=== PATIENT | male | born 1930 | race Caucasian/White ===

== ENCOUNTER 2017-05-16 13:49 | Emergency (ER) | payer MEDICARE, OTHER ==
[~2017-05-16] VITALS: Ht 188 cm; Wt 102.7 kg
[~2017-05-16 13:49] MED LIST: ACTOS 15MG TAB15 MG PO; ACTOS30 MG PO; AMARYL 2MG T2 MG/TAB PO; ASPI325T6 PO; CEPHALEXIN250 M1 PO; CIPRO 500MG TA500 MG PO; CRESTOR; CRESTOR5 MG PO; FERROUS SU325 MG/TAB PO; FERROUS SULFAT160 M1 PO; FLOMAX 0.40.4 MG/CAP PO; FLOMAX0.4 MG PO; GLUCOPHAGE; GLUCOPHAGE500 MG/TAB PO; GLYBURIDE MICRON3 MG PO; IRON325 M1 PO; LEVEMIR FLEX100 U/ML SQ; LISINOPRIL; MULTIPLE VITAMI1 CAP PO; MYRBETR50MG PO; NORCO 325 MG-101 TAB PO; OMNICEF 300MG300 MG PO; PRILOSEC; PRILOSEC10 MG PO; REMERON 15M15 MG/TA1 PO; SENOKOT S 50 MG1 TAB PO; ULTRAM 50MG TAB50 MG PO; ZESTRIL 5MG5 MG PO; ZOFRAN ODT4 MG PO
[2017-05-16 13:52] VITALS: TEMP 98.8
[2017-05-16 18:10] VITALS: BP 132/71; PULSE 69
== END 2017-05-16 18:15 | disposition home or self-care (01) ==
LOC: COL.ER 13:49
DX: T18.128A Food in esophagus causing other injury, initial encounter (principal); E11.9 Type 2 diabetes mellitus without complications; E78.5 Hyperlipidemia, unspecified; I10 Essential (primary) hypertension; K21.9 Gastro-esophageal reflux disease without esophagitis; N40.0 Benign prostatic hyperplasia without lower urinary tract symptoms; Z79.4 Long term (current) use of insulin; Z87.19 Personal history of other diseases of the digestive system; Z98.890 Other specified postprocedural states
CPT/HCPCS: C1769; J2704

== ENCOUNTER 2017-06-10 08:46 | Inpatient (IN) | payer MEDICARE, OTHER ==
[~2017-06-10] VITALS: Ht 188 cm; Wt 107.5 kg
[~2017-06-10 08:46] MED LIST changes: -FERROUS SULFAT160 M1 PO; +IRON 27 MG PO
[2017-06-10 09:39] LABS: BASO % 0.2 % (0.0-2.0); GRAN # 12.1 (1.4-6.5); GRAN % 80.3 % (42.2-75.2); LYMPH # 1.7 (1.2-3.4); MEAN CELL VOLUME 101 fl (80.0-100.0); MEAN CORPUSCULAR HGB CONC 34 g/dl (33.0-37.0); MEAN PLATELET VOLUME 10.5 fl (7.4-10.4); MONO # 1.1 (0.1-0.6); MONO % 7.5 % (1.7-9.3); PLATELET COUNT 197 K/mm3 (130-400); RED BLOOD COUNT 3.24 M/mm3 (4.20-5.60)
[2017-06-10 09:42] LABS: ALBUMIN 4.2 gm/dL (3.5-5.0); BILIRUBIN,TOTAL 1.5 mg/dL (0.0-1.0); CALCIUM 9.2 mg/dL (8.4-10.2); CREATININE, serum 1.27 mg/dL (0.66-1.25); TOTAL PROTEIN 7.5 gm/dL (6.4-8.2)
[2017-06-10 09:43] LABS: HEMATOCRIT 32.6 % (42.0-52.0); MEAN CORPUSCULAR HEMOGLOBIN 34 pg (27.0-31.0)
[2017-06-10 09:54] LABS: TROPONIN-I 0.021 ng/mL (0.000-0.034)
[2017-06-10 09:56] LABS: INR 1.2 (0.8-3.0); PROTHROMBIN TIME 13.9 SECONDS (9.7-12.8)
[2017-06-10 11:27] LABS: COLLECTION METHOD CLEAN CATCH
[2017-06-10 11:38] LABS: MUCOUS Present /lpf; PH 5 (5-8); SQUAMOUS EPITHELIAL 0-2 /hpf; URINE APPEARANCE Cloudy; URINE BACTERIA Many /hpf; URINE BILIRUBIN Negative (NEGATIVE); URINE BLOOD 2+ (NEGATIVE); URINE COLOR Amber; URINE GLUCOSE Negative (NEGATIVE); URINE KETONE Trace (NEGATIVE); URINE LEUKOCYTE ESTERASE 2+ (NEGATIVE); URINE PROTEIN(semi-quant) 2+ (NEGATIVE); URINE UROBILINOGEN Negative (NEGATIVE)
[2017-06-10 11:39] LABS: URINE WBC >50 /hpf
[2017-06-10 15:18] VITALS: BP 129/54; PULSE 84; TEMP 98.1
[2017-06-10] MEDS ORDERED: TRESIBA FL100 UNIT/1 SQ (15:22)
[2017-06-10] MEDS ORDERED: NORCO 325 MG-51 TAB PO (15:23)
[2017-06-10] MEDS ORDERED: NATURE'S BLEND500 M1 PO (15:24)
[2017-06-10] MEDS ORDERED: PROBIOTIC ACID1 EAC3 PO (15:25)
[2017-06-10] MEDS ORDERED: NOVOLOG FLEX100 U/ML SQ (15:28)
[2017-06-10 16:06] VITALS: BP 113/52; PULSE 75; TEMP 98.7
[2017-06-10 20:03] VITALS: BP 118/49; PULSE 76; TEMP 98.9
[2017-06-11 03:49] VITALS: BP 100/52; PULSE 71; TEMP 98.7
[2017-06-11 08:07] VITALS: BP 104/50; PULSE 67; TEMP 97.6
[2017-06-11 09:28] LABS: BASO % 0.2 % (0.0-2.0); EOS % 0.2 % (0-4.0); GRAN # 6.3 (1.4-6.5); GRAN % 73.5 % (42.2-75.2); LYMPH # 1.5 (1.2-3.4); MEAN CELL VOLUME 102 fl (80.0-100.0); MEAN CORPUSCULAR HGB CONC 34 g/dl (33.0-37.0); MEAN PLATELET VOLUME 10.8 fl (7.4-10.4); MONO # 0.6 (0.1-0.6); MONO % 7.4 % (1.7-9.3); PLATELET COUNT 141 K/mm3 (130-400); RED BLOOD COUNT 2.59 M/mm3 (4.20-5.60); WHITE BLOOD COUNT 8.5 K/mm3 (4.8-10.8)
[2017-06-11 09:30] LABS: CALCIUM 8.2 mg/dL (8.4-10.2); CREATININE, serum 1.04 mg/dL (0.66-1.25); MAGNESIUM 1.7 mg/dL (1.6-2.3); POTASSIUM 3.7 mmol/L (3.4-5.0)
[2017-06-11 09:42] LABS: TROPONIN-I 0.029 ng/mL (0.000-0.034)
[2017-06-11 09:48] LABS: HEMATOCRIT 26.3 % (42.0-52.0); HEMOGLOBIN 8.8 g/dl (13.5-18.0); MEAN CORPUSCULAR HEMOGLOBIN 34 pg (27.0-31.0)
[2017-06-11 13:19] VITALS: BP 119/49; PULSE 72; TEMP 98.5
[2017-06-11 15:48] VITALS: BP 121/50; PULSE 87; TEMP 98.1
[2017-06-11 15:53] LABS: HEMATOCRIT 33.2 % (42.0-52.0); HEMOGLOBIN 10.9 g/dl (13.5-18.0)
[2017-06-11 19:44] VITALS: BP 99/85; PULSE 83; TEMP 98.5
[2017-06-11 23:26] VITALS: BP 130/53; BP 155/92; PULSE 62; PULSE 81; TEMP 98.4
[2017-06-12] VITALS (10 sets, daily range): BP systolic 114–154; BP diastolic 47–119; PULSE 78–119; TEMP 97.5–99.3
[2017-06-12 06:20] LABS: BASO % 0.3 % (0.0-2.0); EOS % 0.1 % (0-4.0); GRAN % 69.5 % (42.2-75.2); LYMPH # 1.4 (1.2-3.4); LYMPH % 19.9 % (20.0-51.0); MEAN CELL VOLUME 101 fl (80.0-100.0); MEAN CORPUSCULAR HGB CONC 33 g/dl (33.0-37.0); MEAN PLATELET VOLUME 10.6 fl (7.4-10.4); MONO # 0.7 (0.1-0.6); MONO % 9.4 % (1.7-9.3); PLATELET COUNT 176 K/mm3 (130-400); WHITE BLOOD COUNT 7.2 K/mm3 (4.8-10.8)
[2017-06-12 06:25] LABS: HEMATOCRIT 28.3 % (42.0-52.0); HEMOGLOBIN 9.4 g/dl (13.5-18.0); MEAN CORPUSCULAR HEMOGLOBIN 34 pg (27.0-31.0)
[2017-06-12 06:41] LABS: CALCIUM 8.4 mg/dL (8.4-10.2); CREATININE, serum 0.92 mg/dL (0.66-1.25); MAGNESIUM 1.7 mg/dL (1.6-2.3); POTASSIUM 3.7 mmol/L (3.4-5.0)
[2017-06-12] MEDS ORDERED: CEFTIN 250250 MG/TAB PO (17:01)
[2017-06-12] MEDS ORDERED: NORCO 325 MG-51 TAB PO (17:02)
[2017-06-12] MEDS ORDERED: ULTRAM 50MG TAB50 MG PO (17:02)
[2017-06-13 03:41] VITALS: BP 136/59; PULSE 87; TEMP 97.9
[2017-06-13 07:03] LABS: MEAN CELL VOLUME 101 fl (80.0-100.0); MEAN CORPUSCULAR HGB CONC 34 g/dl (33.0-37.0); MEAN PLATELET VOLUME 10.8 fl (7.4-10.4); PLATELET COUNT 217 K/mm3 (130-400); RED BLOOD COUNT 2.66 M/mm3 (4.20-5.60); WHITE BLOOD COUNT 5.8 K/mm3 (4.8-10.8)
[2017-06-13 07:12] LABS: ADD PATHOLOGY DIFF REVIEW NO; HEMATOCRIT 26.9 % (42.0-52.0); HEMOGLOBIN 9.2 g/dl (13.5-18.0); MEAN CORPUSCULAR HEMOGLOBIN 35 pg (27.0-31.0)
[2017-06-13 07:16] LABS: CALCIUM 8.4 mg/dL (8.4-10.2); CREATININE, serum 0.88 mg/dL (0.66-1.25); MAGNESIUM 1.7 mg/dL (1.6-2.3); PHOSPHOROUS 2.7 mg/dL (2.5-4.5); POTASSIUM 3.9 mmol/L (3.4-5.0)
[2017-06-13 08:21] LABS: BAND 2 % (0-10); LYMPHOCYTE 20 % (20.0-51.0); METAMYELOCYTE 1 % (0-0); NEUTROPHILS 70 % (42.0-75.2); PLATELET ESTIMATE NORMAL (NORMAL); TOTAL CELLS COUNTED 100
[2017-06-13 08:23] LABS: ANISOCYTOSIS 1+
[2017-06-13 08:44] VITALS: BP 140/55; PULSE 87; TEMP 98.1
[2017-06-13 12:17] VITALS: BP 120/58; PULSE 72; TEMP 98.2
[2017-06-13 15:56] VITALS: BP 130/58; PULSE 83; TEMP 99
[2017-06-13 19:54] VITALS: BP 116/48; PULSE 86; TEMP 98.8
[2017-06-13 23:51] VITALS: BP 126/46; PULSE 69; TEMP 98.2
[2017-06-14 04:06] VITALS: BP 117/52; PULSE 66; TEMP 98.9
[2017-06-14 07:54] VITALS: BP 171/91; PULSE 81; TEMP 97.6
[2017-06-14 08:09] LABS: MEAN CELL VOLUME 100 fl (80.0-100.0); MEAN CORPUSCULAR HGB CONC 34 g/dl (33.0-37.0); MEAN PLATELET VOLUME 10.7 fl (7.4-10.4); PLATELET COUNT 263 K/mm3 (130-400); RED BLOOD COUNT 3.05 M/mm3 (4.20-5.60); WHITE BLOOD COUNT 4.4 K/mm3 (4.8-10.8)
[2017-06-14 08:10] LABS: ADD PATHOLOGY DIFF REVIEW NO; HEMATOCRIT 30.4 % (42.0-52.0); HEMOGLOBIN 10.3 g/dl (13.5-18.0); MEAN CORPUSCULAR HEMOGLOBIN 34 pg (27.0-31.0)
[2017-06-14 08:50] LABS: CALCIUM 8.9 mg/dL (8.4-10.2); CREATININE, serum 0.86 mg/dL (0.66-1.25); MAGNESIUM 1.7 mg/dL (1.6-2.3); PHOSPHOROUS 3.2 mg/dL (2.5-4.5); POTASSIUM 3.5 mmol/L (3.4-5.0)
[2017-06-14 10:03] LABS: BAND 5 % (0-10); EOSINOPHIL 2 % (0-4); LYMPHOCYTE 30 % (20.0-51.0); METAMYELOCYTE 2 % (0-0); NEUTROPHILS 56 % (42.0-75.2); PLATELET ESTIMATE NORMAL (NORMAL); POLYCHROMASIA 1+; TOTAL CELLS COUNTED 100
[2017-06-14] MEDS ORDERED: B-121000 MCG PO (10:15)
[2017-06-14] MEDS ORDERED: MIRALAX 255 GM255 GM PO (10:25)
[2017-06-14 11:35] VITALS: BP 126/103; PULSE 87; TEMP 97.1
[2017-06-14 11:58] VITALS: BP 126/103; PULSE 87; TEMP 97.1
[2017-06-14] MEDS ORDERED: NORCO 325 MG-51 TAB PO (12:11)
[2017-06-14] MEDS ORDERED: ULTRAM 50MG TAB50 MG PO (12:11)
== END 2017-06-14 13:12 | DRG 872 ==
LOC: COL.ER 08:46 → MEDICAL 12:08
PROVIDERS: Emergency Medicine; Internal Medicine; Nurse Practitioner Family; Physician Assistant
DX: A41.59 Other Gram-negative sepsis (principal); N39.0 Urinary tract infection, site not specified; E87.1 Hypo-osmolality and hyponatremia; N17.9 Acute kidney failure, unspecified; E87.2 Acidosis; B96.1 Klebsiella pneumoniae [K. pneumoniae] as the cause of diseases classified elsewhere; E11.9 Type 2 diabetes mellitus without complications; I10 Essential (primary) hypertension; R65.20 Severe sepsis without septic shock; Z79.4 Long term (current) use of insulin; D64.9 Anemia, unspecified; R26.81 Unsteadiness on feet
CPT/HCPCS: 99223-AI; 99231-AI; 99232-AI; 99239; J0696; J1335; J1644; J1815; J1940; J2185; J3420; J7030; J7050

== ENCOUNTER 2019-07-06 17:42 | Inpatient (IN) | payer MEDICARE, OTHER ==
[~2019-07-06] VITALS: Ht 185.4 cm; Wt 106.8 kg
[~2019-07-06 17:42] MED LIST changes: +B-121000 MCG PO; +CEFTIN 250250 MG/TAB PO; +MIRALAX 255 GM255 GM PO; +NATURE'S BLEND500 M1 PO; +NORCO 325 MG-51 TAB PO; +NOVOLOG FLEX100 U/ML SQ; +PROBIOTIC ACID1 EAC3 PO; +TRESIBA FL100 UNIT/1 SQ
[2019-07-06 18:32] LABS: HEMOGLOBIN 10.5 g/dl (13.5-18.0); MEAN CELL VOLUME 100 fl (80.0-100.0); MEAN CORPUSCULAR HEMOGLOBIN 34 pg (27.0-31.0); MEAN CORPUSCULAR HGB CONC 34 g/dl (33.0-37.0); MEAN PLATELET VOLUME 11.4 fl (7.4-10.4); PLATELET COUNT 210 K/mm3 (130-400); RED BLOOD COUNT 3.11 M/mm3 (4.20-5.60); REDCELL DISTRIBUTION WIDTH-CV 15.6 % (11.5-14.5)
[2019-07-06 18:36] LABS: ALBUMIN 3.7 gm/dL (3.5-5.0); BILIRUBIN,TOTAL 4.9 mg/dL (0.0-1.0); CALCIUM 9.1 mg/dL (8.4-10.2); CREATININE, serum 1.42 (0.66-1.25); POTASSIUM 3.9 mmol/L (3.4-5.0); TOTAL PROTEIN 7.6 gm/dL (6.4-8.2)
[2019-07-06 18:39] LABS: HEMATOCRIT 31.1 % (42.0-52.0)
[2019-07-06 18:43] LABS: INR 1.3 (0.8-3.0); PROTHROMBIN TIME 14.9 SECONDS (9.7-12.8)
[2019-07-06 18:47] LABS: C-REACTIVE PROTEIN 25.4 mg/dL (0.0-0.9); TROPONIN-I 0.038 ng/mL (0.000-0.035)
[2019-07-06 19:16] LABS: BAND 6 % (0-10); LYMPHOCYTE 3 % (20.0-51.0); NEUTROPHILS 91 % (42.0-75.2); PLATELET ESTIMATE NORMAL (NORMAL)
[2019-07-06] MEDS ORDERED: PROSCAR 5MG5 MG PO (20:09)
[2019-07-06] MEDS ORDERED: SENNA-LAX8.6 MG PO (20:11)
[2019-07-06 20:45] LABS: COLLECTION METHOD CLEAN CATCH
[2019-07-06 20:51] LABS: MUCOUS Present /lpf; PH 5 (5-8); SQUAMOUS EPITHELIAL 0-2 /hpf; URINE APPEARANCE Clear; URINE BACTERIA None Seen /hpf; URINE BILIRUBIN Positive (NEGATIVE); URINE BLOOD 2+ (NEGATIVE); URINE COLOR Amber; URINE GLUCOSE 1+ (NEGATIVE); URINE KETONE Negative (NEGATIVE); URINE LEUKOCYTE ESTERASE Negative (NEGATIVE); URINE NITRATE Negative (NEGATIVE); URINE PROTEIN(semi-quant) 1+ (NEGATIVE); URINE RBC 0-2 /hpf
[2019-07-06 20:55] VITALS: BP 124/60; PULSE 90; TEMP 98.5
[2019-07-06] MEDS ORDERED: FERROUS GL325 MG/TAB PO (21:44)
--- NOTE | 2019-07-06 22:00 | NUR ---
Admitted to medical floor from ER with increased troponin, cholycystitis, jaundice- alert, oriented-VSS, very pleasant- did fall at home due to weakness- will be on fall protocol- states understanding,bed alarm on- assisted with urinal- voided 200cc dark arnoldo/orange urine, denies pain, Tele on,
[2019-07-06 23:33] VITALS: BP 109/57; PULSE 79; TEMP 98.2
--- NOTE | 2019-07-07 02:38 | NUR ---
Bhakta by Tele- pt had 16 beat run afib-rvr, back in NSR, pt resting, no complaints-Did inform Concepción TORRES sandstone splitter tonight
[2019-07-07 03:19] VITALS: BP 117/70; PULSE 76; TEMP 98.6
--- NOTE | 2019-07-07 05:35 | NUR ---
Quiet night-- did sleep fair all night ,,VSS,Voiding dk urine per urinal-- pt is NPO,IV fluids of NS at 150cc/hr,VSS. Pt denies pain/nausea.
[2019-07-07 06:42] LABS: MEAN CELL VOLUME 102 fl (80.0-100.0); MEAN CORPUSCULAR HGB CONC 33 g/dl (33.0-37.0); MEAN PLATELET VOLUME 11.2 fl (7.4-10.4); PLATELET COUNT 174 K/mm3 (130-400); RED BLOOD COUNT 2.73 M/mm3 (4.20-5.60); REDCELL DISTRIBUTION WIDTH-CV 15.7 % (11.5-14.5)
[2019-07-07 06:50] LABS: HEMATOCRIT 27.7 % (42.0-52.0); HEMOGLOBIN 9.1 g/dl (13.5-18.0); MEAN CORPUSCULAR HEMOGLOBIN 33 pg (27.0-31.0)
--- NOTE | 2019-07-07 07:00 | NUR ---
Bedside shift report received from AMANUEL Astudillo. Pt in bed resting, cherise muñoz, will continue to monitor.
[2019-07-07 07:01] LABS: INR 1.2 (0.8-3.0)
[2019-07-07 07:05] LABS: BILIRUBIN,TOTAL 4.3 mg/dL (0.0-1.0); CALCIUM 8.2 mg/dL (8.4-10.2); CREATININE, serum 1.12 (0.66-1.25); POTASSIUM 3.8 mmol/L (3.4-5.0); TOTAL PROTEIN 6.5 gm/dL (6.4-8.2)
[2019-07-07 07:38] LABS: BAND 12 % (0-10); LYMPHOCYTE 9 % (20.0-51.0); METAMYELOCYTE 2 % (0-0); MYELOCYTE 2 % (0-0); NEUTROPHILS 74 % (42.0-75.2); PLATELET ESTIMATE NORMAL (NORMAL)
--- NOTE | 2019-07-07 08:34 | NUR ---
Pt sylvie, consent signed for ERCP today. [facility] Pt is NPO. Pain is 2/10 to RUQ requestingPRN pain medication, provided. Pt has yellow sclera to eyes, pallor to skin. IVF to RA/C. SCDs in place. Denies other needs, will continue to monitor.
[2019-07-07 08:42] VITALS: BP 128/58; PULSE 76; TEMP 98.9
[2019-07-07 12:32] VITALS: BP 122/52; PULSE 81; TEMP 98.9
--- NOTE | 2019-07-07 14:36 | NUR ---
Communication Instructor met with patient and patient's
--- NOTE | 2019-07-07 14:38 | NUR ---
Ingot Supervisor met with the patient, patient's daughter Ofelia (ph#[phone]) and granddaughter Karely to discuss discharge planning. Patient states he lives at [facility] and has been there for about [address] Holloway for primary care. Patient has two different walkers and a cane. Patient has Advance Directives located in the EMR. Patient plans to return to [facility] upon discharge. SW presented Patient Choice form and patient selected [facility]. Patient provided signature and SW placed form in chart. Patient states his son, Marty (ph#[phone]) can provide transportation upon discharge. SW contacted Nicol at [facility] who advised patient lives in Independent Living. SW faxed referral in case skilled stay is recommended. SW to continue to follow.
--- NOTE | 2019-07-07 16:07 | NUR ---
Pt down in Endoscopy for ERCP at this time. Pt did well today, PRN pain meds provided as needed. Report given to AMANUEL Lucero who will resume care.
--- NOTE | 2019-07-07 20:15 | NUR ---
Shift assessment complete. Pt resting in bed, awake, a&o, cooperative c cares. Pt denies pain or other c/o at this time. INT patent. Tele in place. Pt denies further needs. Call light in reach, bed alarm on. Will continue to monitor.
[2019-07-07 20:21] VITALS: BP 136/62; PULSE 88; TEMP 99.1
[2019-07-08] VITALS (7 sets, daily range): BP systolic 117–138; BP diastolic 41–69; PULSE 70–88; TEMP 98.3–99.4
[2019-07-08 06:53] LABS: MEAN CELL VOLUME 102 fl (80.0-100.0); MEAN CORPUSCULAR HGB CONC 33 g/dl (33.0-37.0); MEAN PLATELET VOLUME 11.8 fl (7.4-10.4); PLATELET COUNT 168 K/mm3 (130-400); RED BLOOD COUNT 2.61 M/mm3 (4.20-5.60); REDCELL DISTRIBUTION WIDTH-CV 15.6 % (11.5-14.5)
[2019-07-08 06:56] LABS: HEMATOCRIT 26.5 % (42.0-52.0); HEMOGLOBIN 8.8 g/dl (13.5-18.0); MEAN CORPUSCULAR HEMOGLOBIN 34 pg (27.0-31.0)
[2019-07-08 06:57] LABS: INR 1.2 (0.8-3.0); PROTHROMBIN TIME 13.7 SECONDS (9.7-12.8)
[2019-07-08 07:05] LABS: ALBUMIN 2.7 gm/dL (3.5-5.0); BILIRUBIN,TOTAL 5.1 mg/dL (0.0-1.0); CALCIUM 7.8 mg/dL (8.4-10.2); CREATININE, serum 0.96 (0.66-1.25); POTASSIUM 3.6 mmol/L (3.4-5.0); TOTAL PROTEIN 6.2 gm/dL (6.4-8.2)
[2019-07-08 07:33] LABS: BAND 14 % (0-10); LYMPHOCYTE 11 % (20.0-51.0); NEUTROPHILS 67 % (42.0-75.2); PLATELET ESTIMATE NORMAL (NORMAL)
--- NOTE | 2019-07-08 08:04 | NUR ---
Patient resting in bed. He report hunger this am, we reivewed importance of clear liquids only today. Denies nausea. Hyperactive bowels. He denies the need for pain medication, reports pain only with movement at a 3/10. Scds ble. Ivf & antibioitic to RAC. Will monitor closely.
--- NOTE | 2019-07-08 09:39 | NUR ---
Patient sitting up in chair. He tolerated clear liquid tray, no nausea. Up and ambulated halls with therapy & did well. Dyspnea with exertion. We reviewed safety & not getting up unless he has assistance.
--- NOTE | 2019-07-08 17:27 | NUR ---
Patient provided with incontinence care as needed today. One assist with walker & gaitbelt. He is tolerating fulls. He has denies nausea & pain today. Ivf
--- NOTE | 2019-07-08 20:40 | NUR ---
Shift assessment complete. Pt resting in bed, awake, a&o c occasional forgetfull statements, cooperative c cares. Pt denies pain or any other c/o. IV patent. Tele in place. Pt denies further needs. Call light in reach, bed alarm on. Will continue to monitor.
[2019-07-09 03:21] VITALS: BP 153/72; PULSE 86; TEMP 98.4
[2019-07-09 06:02] LABS: MEAN CELL VOLUME 100 fl (80.0-100.0); MEAN CORPUSCULAR HGB CONC 34 g/dl (33.0-37.0); MEAN PLATELET VOLUME 11.6 fl (7.4-10.4); PLATELET COUNT 184 K/mm3 (130-400); RED BLOOD COUNT 2.74 M/mm3 (4.20-5.60); REDCELL DISTRIBUTION WIDTH-CV 15.4 % (11.5-14.5)
[2019-07-09 06:03] LABS: HEMATOCRIT 27.3 % (42.0-52.0); HEMOGLOBIN 9.2 g/dl (13.5-18.0); MEAN CORPUSCULAR HEMOGLOBIN 34 pg (27.0-31.0)
[2019-07-09 06:08] LABS: ALBUMIN 2.7 gm/dL (3.5-5.0); BILIRUBIN,TOTAL 5.7 mg/dL (0.0-1.0); CALCIUM 8.1 mg/dL (8.4-10.2); CREATININE, serum 0.88 (0.66-1.25); POTASSIUM 3.4 mmol/L (3.4-5.0); TOTAL PROTEIN 6.2 gm/dL (6.4-8.2)
[2019-07-09 06:12] LABS: INR 1.2 (0.8-3.0); PROTHROMBIN TIME 14.1 SECONDS (9.7-12.8)
[2019-07-09 07:14] VITALS: BP 141/61; PULSE 82; TEMP 98
--- NOTE | 2019-07-09 09:00 | NUR ---
Patient sitting up in bed, son at the bedside. A&O, denies pain and discomfort. VSS. IV CDI, fluids. Patient on full liquid diet, did not like anything on his tray for breakfast. Jello provided when requested. No further needs expressed from patient. Call light within reach
[2019-07-09 10:11] LABS: LYMPHOCYTE 10 % (20.0-51.0); NEUTROPHILS 84 % (42.0-75.2); PLATELET ESTIMATE NORMAL (NORMAL)
[2019-07-09 10:48] LABS: C-REACTIVE PROTEIN 19.6 mg/dL (0.0-0.9)
[2019-07-09 11:36] VITALS: BP 148/63; PULSE 85; TEMP 99.1
[2019-07-09 16:28] VITALS: BP 128/60; PULSE 91; TEMP 99.2
--- NOTE | 2019-07-09 17:33 | NUR ---
Patient had been incontinent of urine several times throughout the shift and has called to use the urinal. Patient also has had a decreased appetite and nursing staff encouraging PO intake. Patient has been repositioned PRN distribute weight. Denies pain and discomfort. VSS. IV CDI, fluids infusing. No further needs expressed from patient. Call light within reach. Bed alarm on
[2019-07-09 19:54] VITALS: BP 114/55; PULSE 94; TEMP 98.1
--- NOTE | 2019-07-09 20:40 | NUR ---
Shift assessment complete. Pt resting in bed, awake, a&o, cooperative c cares. Pt denies pain or any other c/o. IV patent. Tele in place. Pt denies needs at this time. Call light in reach, bed alarm on. Will continue to monitor.
[2019-07-09 23:51] VITALS: BP 129/62; PULSE 90; TEMP 98.9
[2019-07-10] VITALS (11 sets, daily range): BP systolic 133–158; BP diastolic 60–85; PULSE 80–88; TEMP 98.3–99
[2019-07-10 06:05] LABS: MEAN CELL VOLUME 98 fl (80.0-100.0); MEAN CORPUSCULAR HGB CONC 35 g/dl (33.0-37.0); MEAN PLATELET VOLUME 11.2 fl (7.4-10.4); PLATELET COUNT 191 K/mm3 (130-400); REDCELL DISTRIBUTION WIDTH-CV 15.3 % (11.5-14.5)
[2019-07-10 06:09] LABS: HEMATOCRIT 27.5 % (42.0-52.0); HEMOGLOBIN 9.5 g/dl (13.5-18.0); MEAN CORPUSCULAR HEMOGLOBIN 34 pg (27.0-31.0)
[2019-07-10 06:13] LABS: ALBUMIN 2.8 gm/dL (3.5-5.0); BILIRUBIN,TOTAL 4.6 mg/dL (0.0-1.0); CALCIUM 8.2 mg/dL (8.4-10.2); CREATININE, serum 0.9 (0.66-1.25); MAGNESIUM 1.5 mg/dL (1.6-2.3); POTASSIUM 3.3 mmol/L (3.4-5.0); TOTAL PROTEIN 6.4 gm/dL (6.4-8.2)
--- NOTE | 2019-07-10 08:00 | NUR ---
Assessment complete. Pt sitting up in bed, A&O x 3. Physical assessment unremarkable. IVF's infusing per orders through right AC site without s/s of complications. Pt denies pain at this time. POC reviewed with pt and pt's son. Pt reports having trouble with the urinal and needing urinate frequently, requesting an external catheter. This nurse will look into the options. Call light in reach. Bed alarm on.
[2019-07-10 08:24] LABS: BAND 7 % (0-10); LYMPHOCYTE 16 % (20.0-51.0); METAMYELOCYTE 2 % (0-0); MYELOCYTE 1 % (0-0); NEUTROPHILS 73 % (42.0-75.2); PLATELET ESTIMATE NORMAL (NORMAL)
--- NOTE | 2019-07-10 11:00 | NUR ---
No external catheters currently available. Pt requesting indwelling catheter. Provider notified, order received.
--- NOTE | 2019-07-10 12:30 | NUR ---
Inserted indwelling ram catheter to patient using G16. Urine draining well, clear and arnoldo color. Patient tolerated the procedure.
--- NOTE | 2019-07-10 15:30 | NUR ---
Pt to OR via bed at this time. IV NS to gravity per pre-op orders.
--- NOTE | 2019-07-10 18:57 | NUR ---
Pt back to room from PACU via bed, drowsy, alert to stimuli then back to sleep quickly. VSS. O2 remains at 4 L/min via NC. Bandaids x 4 to abd CDI. Pt's son at bedside. Call light in reach.
--- NOTE | 2019-07-10 19:45 | NUR ---
Shift assessment complete. Pt resting in bed, sleepy but easy to wake, alert, oriented but c frequent confused statements p procedure, cooperative c cares. Pt c/o abd pain, unable to describe or rate; PRN pain medical staff assistant per pt req. Pt denies any other c/o. ABD lap sites x4 from lap allison, all sites s complication et bandaids C/D/I. Tele in place. O2 per NC. Post-op VSS. Cunningham to DD s complication. Pt s further needs. Call light in reach, bed alarm on. Will continue to monitor.
[2019-07-11] VITALS: BP 134/70; PULSE 86; TEMP 98.8
[2019-07-11 04:08] VITALS: BP 128/46; PULSE 76; TEMP 98
[2019-07-11 06:44] LABS: ALBUMIN 2.7 gm/dL (3.5-5.0); CALCIUM 7.8 mg/dL (8.4-10.2); CREATININE, serum 0.89 (0.66-1.25); MAGNESIUM 1.9 mg/dL (1.6-2.3); POTASSIUM 3.7 mmol/L (3.4-5.0); TOTAL PROTEIN 6.1 gm/dL (6.4-8.2)
[2019-07-11 06:56] LABS: MEAN CELL VOLUME 101 fl (80.0-100.0); MEAN CORPUSCULAR HGB CONC 34 g/dl (33.0-37.0); MEAN PLATELET VOLUME 11.4 fl (7.4-10.4); PLATELET COUNT 206 K/mm3 (130-400); RED BLOOD COUNT 2.65 M/mm3 (4.20-5.60); REDCELL DISTRIBUTION WIDTH-CV 16.1 % (11.5-14.5)
[2019-07-11 06:59] LABS: HEMATOCRIT 26.8 % (42.0-52.0); HEMOGLOBIN 9.1 g/dl (13.5-18.0); MEAN CORPUSCULAR HEMOGLOBIN 34 pg (27.0-31.0)
[2019-07-11 07:29] VITALS: BP 128/62; PULSE 74; TEMP 98.2
--- NOTE | 2019-07-11 09:00 | NUR ---
Patient sitting up in bed. A&Ox4, reporting pain in abdomen, pain medication given prior. VSS. IV CDI. 4xlap sites, CDI bandaid covering. Cunningham to dependent drainage, clear dark yellow. No further needs expressed from patient. Call light within reach. Bed alarm on
[2019-07-11 09:07] LABS: BAND 6 % (0-10); LYMPHOCYTE 15 % (20.0-51.0); METAMYELOCYTE 2 % (0-0); MYELOCYTE 2 % (0-0); NEUTROPHILS 75 % (42.0-75.2)
[2019-07-11 09:08] LABS: PLATELET ESTIMATE NORMAL (NORMAL); SCHISTOCYTES 1+
[2019-07-11 11:45] VITALS: BP 114/48; PULSE 77; TEMP 97.8
--- NOTE | 2019-07-11 13:18 | NUR ---
SW presented the IM form to the patient. The patient understood and signed the form. A copy was provided to the patient and original was placed in the chart. Social service will continue to follow.
[2019-07-11] MEDS ORDERED: TYLENOL 325MG325 MG PO (13:23)
[2019-07-11] MEDS ORDERED: NORCO 325 MG-51 TAB PO (13:24)
[2019-07-11 14:17] VITALS: BP 126/56; PULSE 89
[2019-07-11] MEDS ORDERED: FLAGYL500 MG PO (14:25)
[2019-07-11] MEDS ORDERED: OMNICEF 300MG300 MG PO (14:25)
[2019-07-11] MEDS ORDERED: NOVOLOG FLEX100 U/ML SQ (14:26)
--- NOTE | 2019-07-11 14:56 | NUR ---
The patient is to discharge today, 07/11 to [facility] for a nursing home stay. The patient will be transported at 1530. SW will fax discharge orders. There are no additional needs at this time.
[2019-07-11] MEDS ORDERED: LOPRESSOR 225 MG/TAB PO (14:57)
--- NOTE | 2019-07-11 15:23 | NUR ---
IV removed, tip intact, gauze and coban applied. Patient tolerated well. Cunningham removed, 12 ml water removed from balloon. Pericare provided before and after removal. Patient tolerated well. Patient assisted into clothes, waiting on [facility] transporter. No further needs expressed from patient. Call light within reach. Will continue to monitor
== END 2019-07-11 15:50 | DRG 853 ==
LOC: COL.ER 17:42 → MEDICAL 20:03
PROVIDERS: Emergency Medicine; Internal Medicine; Internal Medicine Interventional Cardiology; Nurse Practitioner Family; Surgery; ADMIT Hospitalist
PROC: 8E0W4CZ Robotic Assisted Procedure of Trunk Region, Percutaneous Endoscopic Approach (ICD-10-PCS; 2019-07-10)
PROC: 0FC98ZZ Extirpation of Matter from Common Bile Duct, Via Natural or Artificial Opening Endoscopic (ICD-10-PCS; 2019-07-10)
PROC: 0FT44ZZ Resection of Gallbladder, Percutaneous Endoscopic Approach (ICD-10-PCS; principal; 2019-07-10 15:45)
DX: A41.9 Sepsis, unspecified organism (principal); I21.A1 Myocardial infarction type 2; N17.9 Acute kidney failure, unspecified; K80.42 Calculus of bile duct with acute cholecystitis without obstruction; N13.8 Other obstructive and reflux uropathy; E78.5 Hyperlipidemia, unspecified; K21.9 Gastro-esophageal reflux disease without esophagitis; F32.9 Major depressive disorder, single episode, unspecified; J45.909 Unspecified asthma, uncomplicated; G43.909 Migraine, unspecified, not intractable, without status migrainosus; J44.9 Chronic obstructive pulmonary disease, unspecified; E11.40 Type 2 diabetes mellitus with diabetic neuropathy, unspecified; M19.90 Unspecified osteoarthritis, unspecified site; N40.1 Benign prostatic hyperplasia with lower urinary tract symptoms; T50.2X5A Adverse effect of carbonic-anhydrase inhibitors, benzothiadiazides and other diuretics, initial encounter; E11.39 Type 2 diabetes mellitus with other diabetic ophthalmic complication; I10 Essential (primary) hypertension; E80.6 Other disorders of bilirubin metabolism; E87.6 Hypokalemia; E83.42 Hypomagnesemia; Z96.612 Presence of left artificial shoulder joint; Z96.611 Presence of right artificial shoulder joint; Z79.4 Long term (current) use of insulin; Z93.0 Tracheostomy status
CPT/HCPCS: 99222-AI; 99232-AI; A4216; C1769; C9113; J0696; J1815; J1940; J1956; J2270; J2405; J2543; J2704; J3010; J3475; J3480; J7030; Q9967

== ENCOUNTER 2019-10-01 14:30 | Emergency (ER) | payer MEDICARE, OTHER ==
[~2019-10-01] VITALS: Ht 185.4 cm; Wt 100.5 kg
[~2019-10-01 14:30] MED LIST changes: +FERROUS GL325 MG/TAB PO; +FLAGYL500 MG PO; +LOPRESSOR 225 MG/TAB PO; +PROSCAR 5MG5 MG PO; +SENNA-LAX8.6 MG PO; +TYLENOL 325MG325 MG PO
[2019-10-01 15:12] LABS: BASO % 0.2 % (0.0-2.0); EOS % 0.4 % (0-4.0); GRAN % 58.2 % (42.2-75.2); HEMATOCRIT 31.8 % (42.0-52.0); HEMOGLOBIN 10.3 g/dl (13.5-18.0); LYMPH # 1.8 (1.2-3.4); LYMPH % 34.6 % (20.0-51.0); MEAN CELL VOLUME 104 fl (80.0-100.0); MEAN CORPUSCULAR HEMOGLOBIN 34 pg (27.0-31.0); MEAN CORPUSCULAR HGB CONC 32 g/dl (33.0-37.0); MEAN PLATELET VOLUME 10.8 fl (7.4-10.4); MONO # 0.3 (0.1-0.6); MONO % 6.2 % (1.7-9.3); PLATELET COUNT 211 K/mm3 (130-400); RED BLOOD COUNT 3.06 M/mm3 (4.20-5.60); REDCELL DISTRIBUTION WIDTH-CV 16.9 % (11.5-14.5)
[2019-10-01 15:25] LABS: ALANINE AMINOTRANSFERASE 30 U/L (21-72); ALBUMIN 3.7 gm/dL (3.5-5.0); ALKALINE PHOSPHATASE 195 U/L (50-136); ANION GAP 11 mmol/L (7-16); AST,SGOT 49 U/L (15-37); BILIRUBIN,TOTAL 0.4 mg/dL (0.0-1.0); BLOOD UREA NITROGEN 14 mg/dL (9-20); CALCIUM 8.7 mg/dL (8.4-10.2); CARBON DIOXIDE 24 mmol/L (22-30); CHLORIDE 105 mmol/L (98-107); CREATININE, serum 1.16 (0.66-1.25); GLUCOSE 245 mg/dL (74-106); SODIUM 139 mmol/L (137-145); TOTAL PROTEIN 7.3 gm/dL (6.4-8.2)
[2019-10-01 15:35] LABS: TROPONIN-I < 0.012 ng/mL (0.000-0.035)
[2019-10-01] MEDS ORDERED: NORCO 325 MG-51 TAB PO (17:01)
[2019-10-01 17:20] VITALS: BP 125/73; PULSE 72; TEMP 98.2
== END 2019-10-01 17:25 | disposition home or self-care (01) ==
LOC: COL.ER 14:30
PROVIDERS: Emergency Medicine
DX: S70.01XA Contusion of right hip, initial encounter (principal); S20.211A Contusion of right front wall of thorax, initial encounter; E78.5 Hyperlipidemia, unspecified; E11.9 Type 2 diabetes mellitus without complications; K21.9 Gastro-esophageal reflux disease without esophagitis; Z79.4 Long term (current) use of insulin; W19.XXXA Unspecified fall, initial encounter; W22.8XXA Striking against or struck by other objects, initial encounter; Y92.000 Kitchen of unspecified non-institutional (private) residence as the place of occurrence of the external cause

== ENCOUNTER 2020-09-23 19:48 | Inpatient (IN) | payer MEDICARE, OTHER ==
[~2020-09-23] VITALS: Ht 185.4 cm; Wt 93.7 kg
[2020-09-23 21:03] LABS: MEAN CELL VOLUME 119 fl (80.0-100.0); MEAN CORPUSCULAR HGB CONC 31 g/dl (33.0-37.0); MEAN PLATELET VOLUME 10.8 fl (7.4-10.4); PLATELET COUNT 163 K/mm3 (130-400); RED BLOOD COUNT 1.51 M/mm3 (4.20-5.60); REDCELL DISTRIBUTION WIDTH-CV 16.9 % (11.5-14.5)
[2020-09-23 21:04] LABS: ALBUMIN 3.5 gm/dL (3.5-5.0); BILIRUBIN,TOTAL 0.3 mg/dL (0.0-1.0); CALCIUM 8.8 mg/dL (8.4-10.2); CREATININE, serum 1.61 (0.66-1.25); POTASSIUM 4.3 mmol/L (3.4-5.0); TOTAL PROTEIN 7.5 gm/dL (6.4-8.2)
[2020-09-23 21:09] LABS: HEMOGLOBIN 5.6 g/dl (13.5-18.0); MEAN CORPUSCULAR HEMOGLOBIN 37 pg (27.0-31.0)
[2020-09-23 21:10] LABS: HEMATOCRIT 17.9 % (42.0-52.0)
[2020-09-23 21:46] LABS: COLLECTION METHOD CLEAN CATCH
[2020-09-23 21:59] LABS: AMORPHOUS CRYSTAL Present /uL; MUCOUS Present /lpf; PH 5 (5-8); SQUAMOUS EPITHELIAL 0-2 /hpf; URINE APPEARANCE Cloudy; URINE BACTERIA Rare /hpf; URINE BILIRUBIN Negative (NEGATIVE); URINE BLOOD 2+ (NEGATIVE); URINE COLOR Yellow; URINE GLUCOSE Negative (NEGATIVE); URINE KETONE Negative (NEGATIVE); URINE LEUKOCYTE ESTERASE Negative (NEGATIVE); URINE NITRATE Negative (NEGATIVE); URINE PROTEIN(semi-quant) 1+ (NEGATIVE); URINE RBC 20-50 /hpf; URINE UROBILINOGEN Negative (NEGATIVE); URINE WBC 20-50 /hpf
[2020-09-23 22:26] LABS: INR 1.2 (0.8-3.0); PROTHROMBIN TIME 13.5 SECONDS (9.7-12.8)
[2020-09-23 22:28] LABS: PARTIAL THROMBOPLASTIN TIME 35.9 SECONDS (26.0-37.0)
[2020-09-23 22:29] LABS: BAND 9 % (0-10); LYMPHOCYTE 31 % (20.0-51.0); NEUTROPHILS 59 % (42.0-75.2)
[2020-09-23 22:30] LABS: ANISOCYTOSIS 1+; HYPOCHROMIA 2+; PLATELET ESTIMATE NORMAL (NORMAL)
[2020-09-23 22:40] LABS: TROPONIN-I 0.015 ng/mL (0.000-0.035)
[2020-09-23 23:56] VITALS: BP 125/52; PULSE 73; TEMP 97.5
[2020-09-24] VITALS (638 sets, daily range): BP systolic 97–141; BP diastolic 40–74; PULSE 65–87; TEMP 97.6–100.3; O2SAT 80–100
--- NOTE | 2020-09-24 01:05 | NUR ---
Arrived to the unit via stretcher. Patient alert and oriented and cooperative with cares. Attached to all monitors. VS stable at this time. Blood currenlty transfusing with no signs of issues or negative reaction. Patient oriented to surroundings and plan of care discussed with patient. Will continue to monitor.
--- NOTE | 2020-09-24 01:30 | NUR ---
Instructed per hospitalist to transfuse only one unit of blood at this time. Will draw follow up labs in the morning.
[2020-09-24] MEDS ORDERED: TYLENOL SU325 MG/SUP RC (02:49)
[2020-09-24] MEDS ORDERED: ASPIRIN 81M81 MG/TA2 PO (02:51)
[2020-09-24] MEDS ORDERED: GENTLE LAXATIVE10 MG RC (02:52)
[2020-09-24] MEDS ORDERED: COLESTID 1GM1 G PO (02:53)
[2020-09-24] MEDS ORDERED: ARICEPT 5MG PO (02:55)
[2020-09-24] MEDS ORDERED: IMODIUM 2MG CAPS2 MG PO (02:56)
[2020-09-24] MEDS ORDERED: PRINIVIL5 MG PO (03:10)
[2020-09-24] MEDS ORDERED: LOPRESSOR 225 MG/TAB PO (03:12)
[2020-09-24] MEDS ORDERED: MILK OF MA400 MG/52 PO (03:13)
[2020-09-24] MEDS ORDERED: ALMACONE 360 M360 ML PO (03:20)
[2020-09-24] MEDS ORDERED: LEADER CLE17 GM/Dose PO (03:25)
[2020-09-24] MEDS ORDERED: TYLENOL 325MG325 MG PO (03:36)
[2020-09-24 06:30] LABS: MEAN CORPUSCULAR HGB CONC 33 g/dl (33.0-37.0); MEAN PLATELET VOLUME 10.6 fl (7.4-10.4); PLATELET COUNT 149 K/mm3 (130-400); RED BLOOD COUNT 1.77 M/mm3 (4.20-5.60)
[2020-09-24 06:39] LABS: CALCIUM 8.4 mg/dL (8.4-10.2); CREATININE, serum 1.3 (0.66-1.25); HEMATOCRIT 19.6 % (42.0-52.0); HEMOGLOBIN 6.5 g/dl (13.5-18.0); MEAN CELL VOLUME 111 fl (80.0-100.0); MEAN CORPUSCULAR HEMOGLOBIN 37 pg (27.0-31.0); POTASSIUM 3.7 mmol/L (3.4-5.0)
[2020-09-24 06:57] LABS: BAND 7 % (0-10); LYMPHOCYTE 70 % (20.0-51.0); NEUTROPHILS 23 % (42.0-75.2); PLATELET ESTIMATE NORMAL (NORMAL)
--- NOTE | 2020-09-24 09:15 | NUR ---
CONSULT CALLED TO OFFICE. MESSAGE LEFT FOR FOR CONSULT. WILL FOLLOW UP.
--- NOTE | 2020-09-24 10:13 | NUR ---
Initial visit; Patient thanked Electrical Line Mechanic for looking in on him, offering prayer and God's blessings.
--- NOTE | 2020-09-24 10:55 | NUR ---
Refined Syrup Operator attended clinical rounds with the team. PT/OT ordered. SERJIO contacted Nicol from [facility]. The patient lives in independent living at [facility]. The patient receives private pay services from [facility]. SERJIO contacted the patient's son, Marty to complete intake. The patient lives at [facility] in independent living. The patient receives private pay services from [facility]. The patient uses a walker. The patient's PCP is Dr. Holloway and [facility] delivers medications. The patient has advanced directives in the EMR. The plan is to return to [facility] at discharge. If the patient is needing prison, the plan is go to [facility] then transition back I.L. If not, he will return back to I.L. with continued private pay services. SERJIO faxed updates to Nicol at [facility].
[2020-09-24 12:34] LABS: RETIC # 0.02 M/mm3 (0.02-0.16); RETIC % 1.5 % (0.5-3.52)
[2020-09-24 12:48] LABS: HEMATOCRIT 14.9 % (42.0-52.0)
[2020-09-24 12:49] LABS: IRON,SERUM 92 ug/dL (35-150)
[2020-09-24 12:58] LABS: TOTAL IRON BINDING CAPACITY 246 ug/dL (261-462)
--- NOTE | 2020-09-24 13:13 | NUR ---
H&H DRAWN POST TRANSFUSION WITH A RESULT OF 4.3. SPOKE WITH LAB AND REDRAW ORDERED. IVF STOPPED FOR 40 MINS PRIOR. REDRAW RESULTED WITH A HGB OF 5. PT'S VSS. NO SIGNS OF BLEEDING. NOTIFIED. ORDER RECEIVED TO TRANSFUSE ANOTHER UNIT PRBC'S. BLOOD BANK CALLED. STATES UNIT WILL BE READY AROUND 1400 AND WILL CALL WHEN READY.
--- NOTE | 2020-09-24 15:23 | NUR ---
[facility] CALLED TO SCHEDULE BONE MARROW BIOPSY. WAS TOLD NEXT AVAILABLE APPOINTMENT WAS 09/30/20. CALLED AND SPOKE TO (PATHOLOGIST) EXPLAINED NEED FOR EXPEDITED BONE MARROW BIOSPY. SHE STATES CAN DO INPAITENT TOMORROW AT 0900. WILL CONSULT ANESTHESIA FOR SEDATION.
--- NOTE | 2020-09-24 15:26 | NUR ---
ANESTHESIA PAGED FOR CONSULT. FLACA RETURNED CALL AND STATES PLAN FOR BONE MARROW BIOSPY TOMORROW AT 0900 SHOULD WORK.
[2020-09-24 19:12] LABS: HEMATOCRIT 26.5 % (42.0-52.0); HEMOGLOBIN 8.7 g/dl (13.5-18.0)
--- NOTE | 2020-09-24 20:15 | NUR ---
Assessment complete; Patient alert and oriented although slightly forgetful. Incontinent of stool and urine. Bedbath and linen change provided. T 100.3. Room temperature feels very warm. Extra blankets removed and room temp decreased. Will continue to monitor; call light left within reach.
[2020-09-24 22:38] LABS: FOLATE (FOLIC ACID) 12.9 ng/mL (7.0-31.4)
[2020-09-25] VITALS (399 sets, daily range): BP systolic 107–134; BP diastolic 42–70; PULSE 65–85; TEMP 97.7–99.7; O2SAT 70–100
--- NOTE | 2020-09-25 05:30 | NUR ---
Verbal consent received from patient for bone marrow biopsy. Patient requested this nurse sign for him.
[2020-09-25 05:54] LABS: MEAN CORPUSCULAR HGB CONC 33 g/dl (33.0-37.0); MEAN PLATELET VOLUME 10.6 fl (7.4-10.4); PLATELET COUNT 121 K/mm3 (130-400); RED BLOOD COUNT 2.04 M/mm3 (4.20-5.60); REDCELL DISTRIBUTION WIDTH-CV 22.6 % (11.5-14.5)
[2020-09-25 06:02] LABS: ALBUMIN 2.6 gm/dL (3.5-5.0); BILIRUBIN,TOTAL 0.5 mg/dL (0.0-1.0); CALCIUM 7.8 mg/dL (8.4-10.2); CREATININE, serum 0.94 (0.66-1.25); POTASSIUM 3.9 mmol/L (3.4-5.0); TOTAL PROTEIN 5.8 gm/dL (6.4-8.2)
[2020-09-25 06:20] LABS: HEMATOCRIT 21.2 % (42.0-52.0); MEAN CELL VOLUME 104 fl (80.0-100.0); MEAN CORPUSCULAR HEMOGLOBIN 34 pg (27.0-31.0)
[2020-09-25 07:51] LABS: BAND 8 % (0-10); EOSINOPHIL 2 % (0-4); LYMPHOCYTE 70 % (20.0-51.0); NEUTROPHILS 20 % (42.0-75.2); NUCLEATED RED BLOOD CELL 1 (0-6); PLATELET ESTIMATE DECREASED (NORMAL)
--- NOTE | 2020-09-25 12:29 | NUR ---
REPORT CALLED TO AMANUEL YATES ON THIS PATIENT. PATIENT WAS TAKEN UP TO ROOM 313 BY AMANUEL PARKER.
--- NOTE | 2020-09-25 14:14 | NUR ---
1215: Pt up to room 313 at this time, pt alert, partially oriented, denies pain, dizziness, N/V/D, SOB. Pt on room air, breathing is even and unlabored, LS cta. HRRR. Pt has male external cath in place draining yellow urine. SCDs on bilaterally. No edema noted. RAC and LAC INT IVs flush w/o issue. BS active. Pt denies needs at this time. Lunch ordered, bed alarm on, call light within reach.
[2020-09-25 15:10] LABS: HEMATOCRIT 24.9 % (42.0-52.0)
--- NOTE | 2020-09-25 23:07 | NUR ---
2000- PT ALERT AND OX 2. ASSESSMENT AND VITALS COMPLETE. PLAN OF CARE DISCUSSED W PT. DENIES PAIN, SOA DIZZY OR NAUSEA. HAS MALE EXTERNAL CATH. IV INTACT, SALINE LOCKED. MONITORING HEMOGLOBIN LAST CHECK STABLE AT 8.0. AM LABS ORDERED. PT WANTED TO GO TO SLEEP, REQ LIGHTS DOWN. BED ALARM ON. CALL LIGHT WI REACH.
[2020-09-26 04:12] VITALS: BP 116/38; PULSE 74; TEMP 100.3
--- NOTE | 2020-09-26 04:49 | NUR ---
PT SLEPT ALL NIGHT. TEMP OF 100.3 THIS MORNING. NECKTIES PAINTER ROOM. TYLENOL GIVEN ALONG W 7AM MEDS. PT DENIES PAIN. NEEDS MET.
[2020-09-26 06:37] LABS: MEAN CELL VOLUME 102 fl (80.0-100.0); MEAN CORPUSCULAR HGB CONC 34 g/dl (33.0-37.0); MEAN PLATELET VOLUME 10.7 fl (7.4-10.4); PLATELET COUNT 111 K/mm3 (130-400); RED BLOOD COUNT 2.25 M/mm3 (4.20-5.60); REDCELL DISTRIBUTION WIDTH-CV 20.6 % (11.5-14.5)
[2020-09-26 06:49] LABS: HEMOGLOBIN 7.7 g/dl (13.5-18.0); MEAN CORPUSCULAR HEMOGLOBIN 34 pg (27.0-31.0)
[2020-09-26 06:57] LABS: CREATININE, serum 0.88 (0.66-1.25); POTASSIUM 3.8 mmol/L (3.4-5.0)
[2020-09-26 07:41] VITALS: BP 104/52; PULSE 69; TEMP 98.6
[2020-09-26 08:04] LABS: LYMPHOCYTE 67 % (20.0-51.0); NEUTROPHILS 31 % (42.0-75.2)
[2020-09-26 08:05] LABS: ANISOCYTOSIS 3+; PLATELET ESTIMATE DECREASED (NORMAL)
--- NOTE | 2020-09-26 09:00 | NUR ---
Patient sitting up in bed. Incontinent of urine, external catheter not on penis. Nursing staff assisted with cleaning the patient and putting a new external catheter on. A&Ox3. VSS. IV CDI. Denies pain and discomfort. No further needs expressed from the patient. Patient repositioned for comfort. Call light within reach. Bed alarm on
[2020-09-26 11:26] VITALS: BP 114/53; PULSE 75; TEMP 97.7
--- NOTE | 2020-09-26 11:31 | NUR ---
Vancomycin Initial Dosing Pharmacy Note Ordering provider: MD NICOLAS Indication/duration: EMPIRIC Relevant comorbidities: DIABETES LABS: WBC 1.0, CrCl ~50 Recommendation: VANCOMYCIN ~13 MG/KG Loading dose: 1.75 grams Maintenance dose: 1.25 grams every 24 HOURS Trough goal: 15-20 ug/mL
--- NOTE | 2020-09-26 14:26 | NUR ---
PT is recommending SNF. SW contacted the patient's son, Marty, to discuss their recommendation. Marty is in agreement to SNF and would prefer [facility]. SERJIO contacted and faxed a referral to Nicol at [facility]. Awaiting screen. SERJIO informed the PA that [facility] will require a COVID test.
[2020-09-26 16:40] VITALS: BP 116/56; PULSE 73; TEMP 98.1
--- NOTE | 2020-09-26 17:39 | NUR ---
Patient had an uneventful day, spent most of the day sitting up in the recliner. A&Ox3. VSS. IV CDI. Denies pain and discomfort. No further needs expressed from the patient. Call light within reach. Chair alarm on
[2020-09-26 20:23] VITALS: BP 120/55; PULSE 71; TEMP 97.9
--- NOTE | 2020-09-26 21:14 | NUR ---
1999- PT LYING IN BED, SON AT BEDSIDE. ASSESSMENT AND VITALS COMPLETE. PT DENIES PAIN, SOA OR DIZZY. EXT CATH REMOVED TODAY PT INSTRUCTED TO CALL FOR HELP TONIGHT TO GO TO BR. PT V/U, CALL LIGHT WI REACH. BED LOW, ALARM ON. BS OF 231 TX 2 UNITS. PLAN OF CARE DISCUSSED. NEEDS MET.
[2020-09-27 00:09] VITALS: BP 110/61; PULSE 60; TEMP 98.9
--- NOTE | 2020-09-27 05:00 | NUR ---
SLEPT ALL NIGHT WITHOUT INCIDENT. NEEDS MET.
[2020-09-27 07:24] LABS: MEAN CELL VOLUME 105 fl (80.0-100.0); MEAN CORPUSCULAR HGB CONC 33 g/dl (33.0-37.0); MEAN PLATELET VOLUME 10.4 fl (7.4-10.4); PLATELET COUNT 108 K/mm3 (130-400); RED BLOOD COUNT 2.14 M/mm3 (4.20-5.60); REDCELL DISTRIBUTION WIDTH-CV 20.1 % (11.5-14.5)
[2020-09-27 07:34] LABS: HEMATOCRIT 22.4 % (42.0-52.0); HEMOGLOBIN 7.3 g/dl (13.5-18.0); MEAN CORPUSCULAR HEMOGLOBIN 34 pg (27.0-31.0)
[2020-09-27 07:40] LABS: CALCIUM 8.2 mg/dL (8.4-10.2); CREATININE, serum 0.85 (0.66-1.25); POTASSIUM 3.6 mmol/L (3.4-5.0)
[2020-09-27 07:44] VITALS: BP 115/47; PULSE 69; TEMP 97.9
--- NOTE | 2020-09-27 08:45 | NUR ---
Assessment completed, alert/oriented, vital signs stable, denies pain this morning, WBC 0.9/ afebrile at this time, hemaglobin 7.3 / 1 unit PRBC on stand by to transfuse if <7.0, heart RRR, lungs CTA, blood sugars WNL, BM Bx pending, patient sitting up eating breakfast, denies other needs at this time
--- NOTE | 2020-09-27 09:32 | NUR ---
Follow-up visit; Patient and his son thanked Registered Nurse for looking in on him again this morning and offering God's blessings.
[2020-09-27 11:43] VITALS: BP 119/48; PULSE 73; TEMP 98
--- NOTE | 2020-09-27 11:49 | NUR ---
SERJIO attended clinical rounds. The patient may be able to d/c tomorrow, 09/28, if doing well. SERJIO notified and faxed updates to Nicol at [facility]. SERJIO met with the patient and presented and read the IM form. The patient verbalized understanding and gave SERJIO approval to sign the form on his behalf. SERJIO provided him with a copy. The patient is agreeable to going to rehab at [facility]. SERJIO contacted and updated the patient's son, Marty. Marty is agreeable to the plan. Marty states that he will be in a meeting from [id number] tomorrow morning and will not have his phone. He states that we can contact his brother, Nico Douglas, if we need anything or to update. Marty plans to obtain his brother's number and will contact SERJIO back.
[2020-09-27 16:08] VITALS: BP 117/53; PULSE 73; TEMP 98.1
--- NOTE | 2020-09-27 16:16 | NUR ---
Nicol, at [facility], reports that they will need updates faxed to them in the morning. They want to make sure that they patient is stable off of the antibiotics and that his WBC is stable too.
--- NOTE | 2020-09-27 16:44 | NUR ---
Nicol, at [facility], reports that if the hospitalist is ready to d/c the patient this weekend, they would require a doc-to-doc. SW informed the PA of this.
[2020-09-27 19:30] VITALS: BP 125/51; PULSE 71; TEMP 98.1
--- NOTE | 2020-09-27 20:10 | NUR ---
Patient laying in bed with eyes closed upon enter the room. Patient awakes upon calling his name. Patient alert and oriented. Patient denies any pain or discomfort. Denies SOB, dyspnea, N/V, or dizziness. All scheduled evening meds given per SEP. Bed-alarms on, call light within reach. Patient denies any needs at this time.
[2020-09-27 23:34] VITALS: BP 132/51; PULSE 63; TEMP 98.3
[2020-09-28 04:08] VITALS: BP 115/49; PULSE 65; TEMP 98.2
--- NOTE | 2020-09-28 06:09 | NUR ---
Patient's VS remains stable and afebrile throughout the night. No acute distress noted. Call light within reach. Will give report to day shift nurse.
[2020-09-28 07:28] VITALS: BP 100/45; PULSE 68; TEMP 98.2
[2020-09-28 07:47] LABS: MEAN CELL VOLUME 106 fl (80.0-100.0); MEAN CORPUSCULAR HGB CONC 33 g/dl (33.0-37.0); MEAN PLATELET VOLUME 10.6 fl (7.4-10.4); PLATELET COUNT 121 K/mm3 (130-400); REDCELL DISTRIBUTION WIDTH-CV 19.8 % (11.5-14.5)
[2020-09-28 07:52] LABS: HEMATOCRIT 23.2 % (42.0-52.0); HEMOGLOBIN 7.6 g/dl (13.5-18.0); MEAN CORPUSCULAR HEMOGLOBIN 35 pg (27.0-31.0)
[2020-09-28 07:59] LABS: CALCIUM 8.7 mg/dL (8.4-10.2); CREATININE, serum 0.84 (0.66-1.25); POTASSIUM 3.7 mmol/L (3.4-5.0)
--- NOTE | 2020-09-28 09:00 | NUR ---
Patient sitting up in the recliner, A&Ox3. Denies pain and discomfort. IV CDI. VSS. External catheter came off penis, nurse instructed patient to call nursing staff for assistance with voiding. No further needs expressed from the patient. Call light within reach. Chair alarm on
--- NOTE | 2020-09-28 10:14 | NUR ---
SW update, sent updates to [facility] for patient.
[2020-09-28 10:34] LABS: BAND 12 % (0-10); EOSINOPHIL 1 % (0-4); LYMPHOCYTE 73 % (20.0-51.0); NEUTROPHILS 14 % (42.0-75.2); NUCLEATED RED BLOOD CELL 1 (0-6)
[2020-09-28 10:35] LABS: ANISOCYTOSIS 2+; PLATELET ESTIMATE DECREASED (NORMAL)
--- NOTE | 2020-09-28 11:11 | NUR ---
SW update, patient will DC to [facility] at 12:00 pm, SW faxed DC and CV testing, no further updates.
[2020-09-28 11:55] VITALS: BP 114/53; PULSE 77; TEMP 97.6
--- NOTE | 2020-09-28 12:27 | NUR ---
IV removed, tip intact. Gauze and coban covering. Personal belongings gathered and patient assisted with getting dressed. No further needs expressed from the patient. Call light within reach. Waiting on [facility] transporter
--- NOTE | 2020-09-28 12:45 | NUR ---
Patient taken by wheelchair with [facility] transporter. Personal belongings and discharge paperwork with the patient. No further needs expressed from the patient.
== END 2020-09-28 12:45 | DRG 834 ==
LOC: COL.ER 19:48 → MEDICAL 21:37 → ICU 21:37 → MEDICAL 09-25 12:30
PROVIDERS: Emergency Medicine; Hospitalist; Pathology Anatomic Pathology & Clinical Pathology; Physician Assistant; Student in an Organized Health Care Education/Training Program; ADMIT Internal Medicine
PROC: 07DR3ZX Extraction of Iliac Bone Marrow, Percutaneous Approach, Diagnostic (ICD-10-PCS; principal; 2020-09-25 09:00)
DX: C92.00 Acute myeloblastic leukemia, not having achieved remission (principal); G93.41 Metabolic encephalopathy; E87.1 Hypo-osmolality and hyponatremia; D61.818 Other pancytopenia; N17.9 Acute kidney failure, unspecified; E11.649 Type 2 diabetes mellitus with hypoglycemia without coma; D53.9 Nutritional anemia, unspecified; D70.9 Neutropenia, unspecified; E78.5 Hyperlipidemia, unspecified; N40.0 Benign prostatic hyperplasia without lower urinary tract symptoms; I12.9 Hypertensive chronic kidney disease with stage 1 through stage 4 chronic kidney disease, or unspecified chronic kidney disease; N18.9 Chronic kidney disease, unspecified; K21.9 Gastro-esophageal reflux disease without esophagitis; K22.70 Barrett's esophagus without dysplasia; F03.90 Unspecified dementia, unspecified severity, without behavioral disturbance, psychotic disturbance, mood disturbance, and anxiety; G47.00 Insomnia, unspecified; I48.91 Unspecified atrial fibrillation; R32 Unspecified urinary incontinence; K59.00 Constipation, unspecified; F32.9 Major depressive disorder, single episode, unspecified; Z79.4 Long term (current) use of insulin; Z20.822 Contact with and (suspected) exposure to COVID-19
CPT/HCPCS: 99223-AI; 99232-AI; 99233-AI; 99239; C9113; J0692; J0696; J1815; J2704; J3370; J7030; J7040; P9040

== ENCOUNTER 2020-10-02 13:00 | Outpatient (RCR) | payer MEDICARE, OTHER ==
[~2020-10-02] VITALS: Ht 185.4 cm; Wt 93.0 kg
[2020-10-02] VITALS (9 sets, daily range): BP systolic 110–132; BP diastolic 53–71; PULSE 71–86; TEMP 97.6–98.7
[~2020-10-02 13:00] MED LIST changes: +ALMACONE 360 M360 ML PO; +ARICEPT 5MG PO; +ASPIRIN 81M81 MG/TA2 PO; +COLESTID 1GM1 G PO; +GENTLE LAXATIVE10 MG RC; +IMODIUM 2MG CAPS2 MG PO; +LEADER CLE17 GM/Dose PO; +MILK OF MA400 MG/52 PO; +PRINIVIL5 MG PO; +TYLENOL SU325 MG/SUP RC
[2020-10-02] MEDS ORDERED: ACIDOPHILIS PO (14:07)
[2020-10-02] MEDS ORDERED: LEVAQUIN 5500 MG/TA1 PO (14:09)
[2020-10-02] MEDS ORDERED: TOPROL XL 25MG25 MG PO (14:31)
[2020-10-02] MEDS ORDERED: LEVEMIR100 U/ML SQ (14:33)
[2020-10-02] MEDS ORDERED: ZESTRIL 5MG5 MG PO (14:34)
[2020-10-02] MEDS ORDERED: NOVOLIN R100 U/ML SQ (14:34)
== END 2020-10-02 17:25 ==
LOC: EUO 13:00
DX: D61.818 Other pancytopenia (principal)
CPT/HCPCS: J7050; P9040

== ENCOUNTER 2020-11-12 13:00 | Outpatient (RCR) | payer MEDICARE, OTHER ==
[~2020-11-12] VITALS: Ht 185.4 cm; Wt 98.9 kg
[2020-11-12] VITALS (8 sets, daily range): BP systolic 113–128; BP diastolic 57–62; PULSE 68–84; TEMP 97.6–98.2
[~2020-11-12 13:00] MED LIST changes: +ACIDOPHILIS PO; +LEVAQUIN 5500 MG/TA1 PO; +LEVEMIR100 U/ML SQ; +NOVOLIN R100 U/ML SQ; +TOPROL XL 25MG25 MG PO
== END 2020-11-12 17:06 | disposition home or self-care (01) ==
LOC: EUO 13:00
DX: C92.00 Acute myeloblastic leukemia, not having achieved remission (principal)
CPT/HCPCS: J7050; P9040

== ENCOUNTER 2020-11-26 13:00 | Outpatient (RCR) | payer MEDICARE, OTHER ==
[2020-11-26] VITALS (9 sets, daily range): BP systolic 113–140; BP diastolic 53–63; PULSE 65–78; TEMP 97.3–98
[~2020-11-26] VITALS: Ht 185.4 cm; Wt 95.4 kg
[2020-11-26] MEDS ORDERED: CINNAMON500 MG PO (15:28)
--- NOTE | 2020-11-26 15:55 | NUR ---
Pt assisted to bedside commode, incontinent cares provided and new brief provided. Pt tolerating transfusions without issue.
--- NOTE | 2020-11-26 17:10 | NUR ---
IV DC'd with catheter intact. Pt tolerated transfusion without issue. Pt assisted out to son's car by wheelchair.
[2020-11-26] MEDS ORDERED: PRILOSEC 20MG20 MG PO (17:27)
[2020-11-26] MEDS ORDERED: B-121000 MCG PO (17:28)
[2020-11-26] MEDS ORDERED: ARICEPT 5MG PO (17:29)
[2020-11-26] MEDS ORDERED: REMERON 15M15 MG/TA1 PO (17:29)
[2020-11-26] MEDS ORDERED: COLESTID 1GM1 G PO (17:29)
[2020-11-26] MEDS ORDERED: NOVOLOG FLEX100 U/ML SQ (17:30)
[2020-11-26] MEDS ORDERED: TRESIBA100 UNIT/1 SQ (17:31)
== END 2020-11-26 17:23 | disposition home or self-care (01) ==
LOC: EUO 13:00 → EDSTATUS 13:00 → EUO 17:23
DX: C92.00 Acute myeloblastic leukemia, not having achieved remission (principal)
CPT/HCPCS: J7050; P9040

== ENCOUNTER 2020-12-10 14:00 | Outpatient (RCR) | payer MEDICARE, OTHER ==
[2020-12-10] VITALS (8 sets, daily range): BP systolic 94–141; BP diastolic 46–58; PULSE 69–76; TEMP 98–98.4
[~2020-12-10 14:00] MED LIST changes: +CINNAMON500 MG PO; +PRILOSEC 20MG20 MG PO; +TRESIBA100 UNIT/1 SQ
== END 2020-12-10 17:24 | disposition home or self-care (01) ==
LOC: EUO 14:00
DX: C92.00 Acute myeloblastic leukemia, not having achieved remission (principal)
CPT/HCPCS: J7050; P9040

== ENCOUNTER 2020-12-20 13:00 | Outpatient (RCR) | payer MEDICARE, OTHER ==
[2020-12-20] VITALS (9 sets, daily range): BP systolic 107–125; BP diastolic 47–52; PULSE 72–95; TEMP 98.3–99.5
[~2020-12-20] VITALS: Ht 185.4 cm; Wt 98.0 kg
[2020-12-20] MEDS ORDERED: CEPHALEXIN500 M1 PO (14:31)
[2020-12-20] MEDS ORDERED: BACTROBAN 22GM22 GM NAS (14:31)
--- NOTE | 2020-12-20 16:24 | NUR ---
Report given to AMANUEL Jackson who will take over pt cares.
== END 2020-12-20 18:05 | disposition home or self-care (01) ==
LOC: EDSTATUS 13:00 → EUO 13:00
DX: C92.00 Acute myeloblastic leukemia, not having achieved remission (principal)
CPT/HCPCS: J7050; P9040

== ENCOUNTER 2020-12-22 18:48 | Inpatient (IN) | payer MEDICARE, OTHER ==
[~2020-12-22] VITALS: Ht 185.4 cm; Wt 96.6 kg
[~2020-12-22 18:48] MED LIST changes: +BACTROBAN 22GM22 GM NAS; +CEPHALEXIN500 M1 PO
[2020-12-22 19:41] LABS: MEAN CELL VOLUME 89 fl (80.0-100.0); MEAN CORPUSCULAR HGB CONC 34 g/dl (33.0-37.0); MEAN PLATELET VOLUME 10.8 fl (7.4-10.4); PLATELET COUNT 50 K/mm3 (130-400); RED BLOOD COUNT 3.04 M/mm3 (4.20-5.60); REDCELL DISTRIBUTION WIDTH-CV 14.5 % (11.5-14.5)
[2020-12-22 19:50] LABS: ALBUMIN 3.3 gm/dL (3.5-5.0); BILIRUBIN,TOTAL 0.7 mg/dL (0.0-1.0); CALCIUM 8.3 mg/dL (8.4-10.2); CREATININE, serum 0.98 (0.66-1.25); POTASSIUM 3.7 mmol/L (3.4-5.0); TOTAL PROTEIN 7.3 gm/dL (6.4-8.2)
[2020-12-22 20:01] LABS: HEMOGLOBIN 9.2 g/dl (13.5-18.0); MEAN CORPUSCULAR HEMOGLOBIN 30 pg (27.0-31.0)
[2020-12-22 20:32] LABS: TROPONIN-I 0.036 ng/mL (0.000-0.035)
[2020-12-22 20:44] LABS: BAND 10 % (0-10); LYMPHOCYTE 66 % (20.0-51.0); NEUTROPHILS 20 % (42.0-75.2); PLATELET ESTIMATE DECREASED (NORMAL)
[2020-12-22 21:54] LABS: COLLECTION METHOD CLEAN CATCH
[2020-12-22 22:02] LABS: MUCOUS Present /lpf; PH 5 (5-8); SQUAMOUS EPITHELIAL None Seen /hpf; URINE APPEARANCE Hazy; URINE BACTERIA None Seen /hpf; URINE BILIRUBIN Negative (NEGATIVE); URINE BLOOD Negative (NEGATIVE); URINE COLOR Yellow; URINE GLUCOSE 1+ (NEGATIVE); URINE KETONE Negative (NEGATIVE); URINE LEUKOCYTE ESTERASE Negative (NEGATIVE); URINE NITRATE Negative (NEGATIVE); URINE PROTEIN(semi-quant) 2+ (NEGATIVE); URINE RBC 0-2 /hpf; URINE UROBILINOGEN Negative (NEGATIVE)
--- NOTE | 2020-12-22 23:51 | NUR ---
Pt arrived to room 356 via cart with ED staff. Pt able to transfer from the cart to the floor bed with assistance of one. Pt oriented to room and call light system. He is now lying in the bed and he denies further needs. Call light within reach.
[2020-12-22 23:58] VITALS: BP 147/55; PULSE 72; TEMP 98.1
[2020-12-23] VITALS (7 sets, daily range): BP systolic 110–124; BP diastolic 47–85; PULSE 77–94; TEMP 98.5–100.9
--- NOTE | 2020-12-23 02:21 | NUR ---
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 Loading dose: 2 grams Maintenance dose: 1 gram every 12 hours Trough goal: 15-20 ug/mL
--- NOTE | 2020-12-23 07:01 | NUR ---
Bedside shift report given to AMANUEL Vazquez.
[2020-12-23 07:11] LABS: MEAN CELL VOLUME 91 fl (80.0-100.0); MEAN CORPUSCULAR HGB CONC 34 g/dl (33.0-37.0); MEAN PLATELET VOLUME 11.3 fl (7.4-10.4); RED BLOOD COUNT 2.79 M/mm3 (4.20-5.60); REDCELL DISTRIBUTION WIDTH-CV 14.6 % (11.5-14.5)
[2020-12-23 07:23] LABS: CALCIUM 8.3 mg/dL (8.4-10.2); CREATININE, serum 0.81 (0.66-1.25); POTASSIUM 3.6 mmol/L (3.4-5.0)
[2020-12-23 07:43] LABS: HEMATOCRIT 25.4 % (42.0-52.0); HEMOGLOBIN 8.6 g/dl (13.5-18.0); MEAN CORPUSCULAR HEMOGLOBIN 31 pg (27.0-31.0); PLATELET COUNT 47 K/mm3 (130-400)
[2020-12-23 09:05] LABS: BAND 4 % (0-10); LYMPHOCYTE 80 % (20.0-51.0); NEUTROPHILS 16 % (42.0-75.2)
[2020-12-23 09:06] LABS: PLATELET ESTIMATE DECREASED (NORMAL)
--- NOTE | 2020-12-23 09:53 | NUR ---
Pt assessment complete. Pt is sitting up in bed upon entry, he is A/O but sometimes forgetful. He currently denies any pain. No N/V. Denies SOB. He is on RA. IVF infusing without complications. Pt denies any needs at this time. Call light within reach.
[2020-12-23 12:45] LABS: CALCIUM 8.1 mg/dL (8.4-10.2); CREATININE, serum 0.91 (0.66-1.25); POTASSIUM 4.2 mmol/L (3.4-5.0)
[2020-12-23 12:56] LABS: TROPONIN-I 0.029 ng/mL (0.000-0.035)
[2020-12-23 13:04] LABS: MAGNESIUM 1.5 mg/dL (1.6-2.3)
--- NOTE | 2020-12-23 18:34 | NUR ---
Pt rested in bed, declined getting into the recliner today. SCD's in place to bilateral legs. Pt was incontinent, pericares provided. Repositioned for comfort. Call light within reach.
--- NOTE | 2020-12-23 21:45 | NUR ---
PATIENT IS WEAK IN THE ROOM,SLEEPING.DUE MEDS GIVEN,VITALS DONE.NO OTHER NEEDS AT THIS TME.
[2020-12-24] VITALS (9 sets, daily range): BP systolic 113–163; BP diastolic 48–83; PULSE 66–92; TEMP 98.2–102.6
[2020-12-24 05:59] LABS: MEAN CELL VOLUME 89 fl (80.0-100.0); MEAN CORPUSCULAR HGB CONC 34 g/dl (33.0-37.0); MEAN PLATELET VOLUME 11.5 fl (7.4-10.4); RED BLOOD COUNT 2.44 M/mm3 (4.20-5.60); REDCELL DISTRIBUTION WIDTH-CV 14.5 % (11.5-14.5)
[2020-12-24 06:09] LABS: HEMATOCRIT 21.8 % (42.0-52.0); HEMOGLOBIN 7.5 g/dl (13.5-18.0); MEAN CORPUSCULAR HEMOGLOBIN 31 pg (27.0-31.0)
[2020-12-24 06:10] LABS: PLATELET COUNT 40 K/mm3 (130-400)
[2020-12-24 06:17] LABS: CALCIUM 7.7 mg/dL (8.4-10.2); CREATININE, serum 0.77 (0.66-1.25); MAGNESIUM 1.9 mg/dL (1.6-2.3); POTASSIUM 3.6 mmol/L (3.4-5.0)
--- NOTE | 2020-12-24 06:22 | NUR ---
PATIENT REMAIN WEAK IN BED.MEDS GIVEN.BG 58 PATIENT REQUESTED TO HAVE ICE CREAM.NO OTHER NEEDS AT THIS TIME.
[2020-12-24 06:49] LABS: LYMPHOCYTE 84 % (20.0-51.0); MICROCYTOSIS 1+; NEUTROPHILS 10 % (42.0-75.2)
--- NOTE | 2020-12-24 06:56 | NUR ---
BLOOD SUGAR RECHECK 112
--- NOTE | 2020-12-24 09:57 | NUR ---
Pt sleeping upon entry to room, no C/O pain at this time. Familt
--- NOTE | 2020-12-24 14:20 | NUR ---
SW's met with the patient and his daughter, Viry, to discuss discharge plan. The resides alone at [facility]. He reports needing assistance with ADLs and has a walker. He states that he has services from [facility] and they assist him with his ADLs. SW contacted and confirmed services from Manolo at [facility]. His PCP is Dr. Artemio Holloway and he receives his medications from [facility]. The patient's DPOA-HC is in EMR and it designates his son, Marty (ph#[phone]). Marty also lives in [place]. PT worked with the patient and recommend home with home health and private duty caregivers vs SNF. The patient's daughter reports that the patient is extremely weak. The patient agreed with his daughter. SERJIO discussed SNF at [facility]. The patient and his daughter would like to pursue SNF at [facility]. SERJIO contacted and faxed a referral to Nicol at [facility]. Awaiting screen. *Discharge plan: [facility] SNF pending acceptance and insurance approval*
--- NOTE | 2020-12-24 17:54 | NUR ---
Pt has been resting today. no C/O pain throughout the day today. family has been in the room during most of the day. Pt only partially oriented. VS have remained stable.
--- NOTE | 2020-12-24 19:02 | NUR ---
Received report from Baltazar. Patient awake, lying in bed. Denies needs at this time.
--- NOTE | 2020-12-24 20:30 | NUR ---
Assesment done. Patient is incontinent, briefs changed. He denies pain. With INT on right AC, flushes well. With healing ulcer/wound on his right elliott. Bed alarm on. Call light within reach.
[2020-12-25 03:46] VITALS: BP 125/55; PULSE 87; TEMP 99.3
--- NOTE | 2020-12-25 03:51 | NUR ---
Antonio of ICU called that patient had a run of AFIB RVR. Patient currently awake in bed, using the urinal. He denies chest pain, shortness of breath or palpitations. Informed Sandra GARVEY via phone call and she ordered EKG. She went in to see the patient as well. Called Dina of RT for EKG.
[2020-12-25 06:30] LABS: MEAN CELL VOLUME 89 fl (80.0-100.0); MEAN CORPUSCULAR HGB CONC 34 g/dl (33.0-37.0); MEAN PLATELET VOLUME 10.9 fl (7.4-10.4); RED BLOOD COUNT 2.59 M/mm3 (4.20-5.60); REDCELL DISTRIBUTION WIDTH-CV 14.4 % (11.5-14.5)
[2020-12-25 06:34] LABS: CALCIUM 7.8 mg/dL (8.4-10.2); CREATININE, serum 0.8 (0.66-1.25); POTASSIUM 3.6 mmol/L (3.4-5.0)
[2020-12-25 06:38] LABS: HEMATOCRIT 23.1 % (42.0-52.0); HEMOGLOBIN 7.8 g/dl (13.5-18.0); MEAN CORPUSCULAR HEMOGLOBIN 30 pg (27.0-31.0)
[2020-12-25 06:40] LABS: PLATELET COUNT 46 K/mm3 (130-400)
[2020-12-25 07:46] LABS: LYMPHOCYTE 64 % (20.0-51.0); METAMYELOCYTE 4 % (0-0); NEUTROPHILS 4 % (42.0-75.2)
[2020-12-25 07:48] LABS: PLATELET ESTIMATE DECREASED (NORMAL)
[2020-12-25 07:55] LABS: HYPOCHROMIA 1+
[2020-12-25 08:17] VITALS: BP 126/58; PULSE 83; TEMP 99.9
[2020-12-25 11:42] VITALS: BP 124/56; PULSE 91; TEMP 98.6
--- NOTE | 2020-12-25 12:02 | NUR ---
Vancomycin Follow-up Pharmacy Note Current regimen: Vancomycin 1 gm IV q12h Vancomycin trough: 9.89 Adjustments: Increase Vancomycin to 1.5 gm IV q12h. Pharmacy will continue to monitor and check a Vancomycin trough on 12/27/20.
--- NOTE | 2020-12-25 13:46 | NUR ---
Pt sleeping upon entry, easily awakened, no C/O pain at this time. Shift assessments complete, left Pt call light in reach, bed in lowest position, alarm on.
--- NOTE | 2020-12-25 14:33 | NUR ---
SERJIO faxed updates to Nicol at [facility].
[2020-12-25 16:41] VITALS: BP 108/68; PULSE 97; TEMP 99.4
[2020-12-25 21:11] VITALS: BP 113/55; PULSE 97; TEMP 101.3
[2020-12-26 00:57] VITALS: BP 129/51; PULSE 87; TEMP 98.5
[2020-12-26 05:25] VITALS: BP 142/59; PULSE 82; TEMP 98.9
[2020-12-26 06:27] LABS: MEAN CELL VOLUME 90 fl (80.0-100.0); MEAN CORPUSCULAR HGB CONC 34 g/dl (33.0-37.0); MEAN PLATELET VOLUME 10.4 fl (7.4-10.4); REDCELL DISTRIBUTION WIDTH-CV 14.3 % (11.5-14.5)
[2020-12-26 06:38] LABS: CALCIUM 8.2 mg/dL (8.4-10.2); CREATININE, serum 0.87 (0.66-1.25)
[2020-12-26 06:42] LABS: HEMATOCRIT 24.2 % (42.0-52.0); HEMOGLOBIN 8.1 g/dl (13.5-18.0); MEAN CORPUSCULAR HEMOGLOBIN 30 pg (27.0-31.0); PLATELET COUNT 40 K/mm3 (130-400)
--- NOTE | 2020-12-26 07:14 | NUR ---
STARTED EXTERNAL CATHETER DT INCONTINENCE. PT RESTING COMFORTABLY IN BED AND BEDSIDE REPORT GIVEN TO NURSE DAY. CARE RELINQUISED AT THIS TIME.
[2020-12-26 07:35] VITALS: BP 133/53; PULSE 89; TEMP 99.3
[2020-12-26 07:40] LABS: BAND 2 % (0-10); NEUTROPHILS 10 % (42.0-75.2); PLATELET ESTIMATE DECREASED (NORMAL)
[2020-12-26 07:41] LABS: LYMPHOCYTE 88 % (20.0-51.0)
--- NOTE | 2020-12-26 08:09 | NUR ---
Pt sleeping upon entry to room, no C/O pain at this time. Pt has very runny nose. Shift assessments complete. left Pt call light in reach, bed in lowest position, alarm on.
[2020-12-26 11:44] VITALS: BP 115/55; PULSE 101; TEMP 101.2
--- NOTE | 2020-12-26 13:40 | NUR ---
SERJIO attended clinical rounds. The patient's son and daughter were at bedside. The patient continues to spike fevers. SERJIO notified and faxed updates to Nicol at [facility]. Nicol inquired about cancer treatment and any plans for it. SERJIO updated the patient's son and daughter. The patient's son, Marty, reports that the patient has never received any cancer treatment and they do not plan on ever pursuing cancer treatment. SERJIO updated Nicol. Nicol reports that they are able to accept the patient for a skilled stay. SW to continue to follow. *Discharge plan: [facility]*
[2020-12-26 16:18] VITALS: BP 113/43; PULSE 89; TEMP 102.2
[2020-12-26 19:33] VITALS: BP 130/47; PULSE 99; TEMP 101.2
--- NOTE | 2020-12-27 07:38 | NUR ---
PT PROVIDED BED BATH, PERSONAL HYIGENE CONDUCTED.PT SLEPT MAJORITY OF THE NIGHT. PT DENIES PAIN, SOB, N/V/D. OVERNIGHT PT SPIKED FEVER AT 100.3, TYLENOL ADMINISTERED ORDERED, UPON F/U TEMPERATURE RECORDED AT 98.3. CALL LIGHT WITHIN REACH.
[2020-12-27 08:00] LABS: MEAN CELL VOLUME 88 fl (80.0-100.0); MEAN CORPUSCULAR HGB CONC 34 g/dl (33.0-37.0); MEAN PLATELET VOLUME 10.6 fl (7.4-10.4); PLATELET COUNT 51 K/mm3 (130-400); RED BLOOD COUNT 2.65 M/mm3 (4.20-5.60); REDCELL DISTRIBUTION WIDTH-CV 14.3 % (11.5-14.5)
--- NOTE | 2020-12-27 08:00 | NUR ---
PATIENT IS PARTIALLY ORIENTED, DISPLAYS OCCATIONAL FORGETFULNESS/CONFUSION. VSS WITH TELE INPLACE. DENIES SOA OR CHEST PAIN. PATIENT RESTING UP IN BED. PATIENT IS WEAK, PALE IN COLOR AND DOESN'T HAVE MUCH OF AN APPEITE. DENIES C/O N/V. 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 WBC IS 0.6 TODAY. SIT TO STAND LIFT IS USED FOR TRANSFERS. PT/OT/ST CONSULTED. [facility] SOFT/ADA DIET. PATIENT REFUSING BREAKFAST STATING HE DOESN'T LIKE IT. SON WENT TO GO GET HIM A DEANDRE MILK SHAKE. AM MEDS GIVEN. HEAD TO TOE ASSESSMENT COMPLET. ST AT BEDSIDE.
[2020-12-27 08:01] LABS: COLLECTION METHOD CLEAN CATCH
[2020-12-27 08:08] LABS: HEMATOCRIT 23.3 % (42.0-52.0); MEAN CORPUSCULAR HEMOGLOBIN 30 pg (27.0-31.0)
[2020-12-27 08:14] LABS: CALCIUM 8.4 mg/dL (8.4-10.2); CREATININE, serum 1.1 (0.66-1.25); POTASSIUM 3.7 mmol/L (3.4-5.0)
[2020-12-27 08:33] LABS: MAGNESIUM 1.9 mg/dL (1.6-2.3)
[2020-12-27 08:36] LABS: MUCOUS Present /lpf; PH 5 (5-8); SQUAMOUS EPITHELIAL None Seen /hpf; URINE APPEARANCE Cloudy; URINE BACTERIA Occasional /hpf; URINE BILIRUBIN Negative (NEGATIVE); URINE BLOOD 1+ (NEGATIVE); URINE COLOR Yellow; URINE GLUCOSE Negative (NEGATIVE); URINE KETONE Negative (NEGATIVE); URINE LEUKOCYTE ESTERASE Negative (NEGATIVE); URINE NITRATE Negative (NEGATIVE); URINE PROTEIN(semi-quant) 2+ (NEGATIVE); URINE UROBILINOGEN Negative (NEGATIVE)
[2020-12-27 08:40] VITALS: BP 121/37; PULSE 93; TEMP 99.5
--- NOTE | 2020-12-27 10:05 | NUR ---
SERJIO contacted [facility] to request prior auth for SNF. The rep reports that they do not manage the patient's plan. SERJIO notified Nicol at [facility]. Nicol reports that they are aware and that they have started auth, but have not gotten it yet. SW to fax updates to [facility] and will continue to follow.
[2020-12-27 11:58] VITALS: BP 95/44; PULSE 97; TEMP 98
--- NOTE | 2020-12-27 14:13 | NUR ---
PATIENT GOING DOWN STAIRS FOR SWALLOW STUDY
--- NOTE | 2020-12-27 15:05 | NUR ---
PATIENT BACK IN ROOM FROM SWALLOW STUDY
[2020-12-27 15:52] VITALS: BP 122/56; PULSE 105; TEMP 98.6
--- NOTE | 2020-12-27 19:01 | NUR ---
Received report from Angelita. Patient awake in bed. Dinner tray still untouched. Denies needs at this time.
[2020-12-27 19:31] VITALS: BP 116/51; PULSE 99; TEMP 100.8; TEMP 101.1
[2020-12-27 21:00] VITALS: TEMP 99.1
--- NOTE | 2020-12-27 21:00 | NUR ---
Patient didn't eat his dinner. He did drink a little bit of chocolate shake. He had a temp of 100.8F and tylenol was given. On recheck he was now at 99.1F
[2020-12-27 23:29] VITALS: BP 115/49; PULSE 79; TEMP 102.6; TEMP 98.6
[2020-12-28] VITALS (11 sets, daily range): BP systolic 106–136; BP diastolic 44–60; PULSE 85–95; TEMP 98.4–99.3
--- NOTE | 2020-12-28 04:00 | NUR ---
Changed patient's diaper and external catheter. Repositioned patient in bed. He denies pain. Offered food or drinks since he didn't eat his dinner, he requested for orange juice.
[2020-12-28 06:27] LABS: MEAN CELL VOLUME 90 fl (80.0-100.0); MEAN CORPUSCULAR HGB CONC 33 g/dl (33.0-37.0); MEAN PLATELET VOLUME 10.7 fl (7.4-10.4); RED BLOOD COUNT 2.17 M/mm3 (4.20-5.60); REDCELL DISTRIBUTION WIDTH-CV 14.4 % (11.5-14.5)
[2020-12-28 06:35] LABS: ALBUMIN 2.6 gm/dL (3.5-5.0); CALCIUM 8.2 mg/dL (8.4-10.2); CREATININE, serum 2.83 (0.66-1.25); POTASSIUM 4.1 mmol/L (3.4-5.0)
[2020-12-28 06:43] LABS: HEMATOCRIT 19.5 % (42.0-52.0); HEMOGLOBIN 6.5 g/dl (13.5-18.0); MEAN CORPUSCULAR HEMOGLOBIN 30 pg (27.0-31.0)
[2020-12-28 06:45] LABS: PLATELET COUNT 45 K/mm3 (130-400)
[2020-12-28 08:33] LABS: LYMPHOCYTE 65 % (20.0-51.0); NEUTROPHILS 19 % (42.0-75.2); PLATELET ESTIMATE DECREASED (NORMAL)
--- NOTE | 2020-12-28 12:45 | NUR ---
First unit of blood started, this nurse will remain at bedside for the first fifteen minutes of transfusion. S/Sx's of reaction discussed with patient.
--- NOTE | 2020-12-28 19:00 | NUR ---
Pt received a unit of blood today without complications. Patient was at bedside and ultimately decided they would like to persue [facility] hosp[facility]. Social work had left after this decision, this nurse attempted to call and left phone number to call back at. Family updated on POC. Pt incontinent of urine through the day, pericare provided. Pt comfortable at this time, no pain at this time. Fall precautions in place.
--- NOTE | 2020-12-28 19:15 | NUR ---
Received report from Taylor. Patient awake in bed. Diaper has been changed prior to shift change. He is not on external catheter. He denies pain and needs at this time.
[2020-12-29 03:26] VITALS: BP 115/50; PULSE 83; TEMP 98.3
--- NOTE | 2020-12-29 05:29 | NUR ---
Kept patient comfortable all throughout the shift. Diaper changed this morning. He is afebrile. He denies pain.
--- NOTE | 2020-12-29 07:22 | NUR ---
Patient resting in bed at this time. Does not C/O any pain, discomfort, or further needs at this time. Will continue to monitor. Call light in reach. Fall precautions in place.
[2020-12-29 14:26] VITALS: BP 116/55; PULSE 86; TEMP 98.8
--- NOTE | 2020-12-29 14:36 | NUR ---
SERJIO received called form [facility] social media editor to start process of acceptance to Hospice. Attempting to get ahold of Dr. Holloway to follow for Hospice. SERJIO faxed PPW. Awaiting statues.
--- NOTE | 2020-12-29 18:00 | NUR ---
Patient has had an uneventful day. Scheduled medication given. Assessment preformed. Patient is beginning to have skin breakdown on sacral region. Frequent repositioning and barrier cream being utilized. Patient has denied any pain throughout the shift. VS have not been taken per request of the patient. Patient to go to [facility] tomorrow. Patient denies any further pain, discomfort, SOA, or further needs at this time. Report given to AMANUEL Anthony.
[2020-12-30 07:54] VITALS: BP 125/63; PULSE 76; TEMP 98.3
[2020-12-30] MEDS ORDERED: MELATONIN3 M1 PO (09:46)
[2020-12-30] MEDS ORDERED: TRANSDERM-0.5 MG/21 TD (09:47)
[2020-12-30] MEDS ORDERED: SYSTANE 0.3-0.1 EACH OP (09:48)
[2020-12-30] MEDS ORDERED: ROXANOL 20MG20 MG/ML SL (09:49)
[2020-12-30] MEDS ORDERED: TYLENOL 325MG325 MG PO (09:49)
[2020-12-30] MEDS ORDERED: ATIVAN 1MG T1 MG/TAB PO (09:49)
[2020-12-30] MEDS ORDERED: NOVOLOG 100U100 U/M1 SQ (09:49)
[2020-12-30] MEDS ORDERED: IPRATROPIUM BROM3 M1 IH (09:49)
--- NOTE | 2020-12-30 10:12 | NUR ---
Pt awake upon entry to room, no C/O pain at this time. Shift assessments complete, left Pt bed in lowest position, alarm on, call light in reach.
--- NOTE | 2020-12-30 12:40 | NUR ---
Pt transferred to hospice via [facility].
--- NOTE | 2020-12-30 13:35 | NUR ---
[employer] Production Manager collaborated with Puja, Palliative RN who advised family would like to discharge to the [facility]. Puja advised that [facility] could take today. SERJIO collaborated with Saima, [facility] who advised they can accept patient today. SERJIO set up transport with [facility] and warehouse order picker time will be 1230. SERJIO provided transport time to patient, patient's family who is at bedside, and Saima. SERJIO faxed discharge orders and negative COVID results.
== END 2020-12-30 12:40 | disposition hospice, inpatient (51) | DRG 871 ==
LOC: COL.ER 18:48 → MEDICAL 22:46
PROVIDERS: Emergency Medicine; Hospitalist; Physician Assistant; Student in an Organized Health Care Education/Training Program; ADMIT Internal Medicine
DX: A41.9 Sepsis, unspecified organism (principal); J69.0 Pneumonitis due to inhalation of food and vomit; I21.A1 Myocardial infarction type 2; E87.1 Hypo-osmolality and hyponatremia; N17.9 Acute kidney failure, unspecified; I47.2 Ventricular tachycardia; C95.90 Leukemia, unspecified not having achieved remission; E11.649 Type 2 diabetes mellitus with hypoglycemia without coma; F03.90 Unspecified dementia, unspecified severity, without behavioral disturbance, psychotic disturbance, mood disturbance, and anxiety; K59.00 Constipation, unspecified; G47.00 Insomnia, unspecified; Z20.822 Contact with and (suspected) exposure to COVID-19; Z51.5 Encounter for palliative care; D70.9 Neutropenia, unspecified; I48.91 Unspecified atrial fibrillation; D46.9 Myelodysplastic syndrome, unspecified; E83.42 Hypomagnesemia; D69.6 Thrombocytopenia, unspecified; N40.0 Benign prostatic hyperplasia without lower urinary tract symptoms; K21.9 Gastro-esophageal reflux disease without esophagitis; Z66 Do not resuscitate; E78.5 Hyperlipidemia, unspecified; R32 Unspecified urinary incontinence; R53.81 Other malaise; Z79.4 Long term (current) use of insulin; Z96.612 Presence of left artificial shoulder joint; Z96.611 Presence of right artificial shoulder joint
CPT/HCPCS: 99223-AI; 99232-AI; 99233-AI; J0692; J1815; J1956; J2543; J3370; J3475; J7030; J7050; P9040